=== PATIENT | male | born 1955 | race Caucasian/White ===

== ENCOUNTER 2024-08-24 05:53 | Day surgery (SDC) | payer OTHER, SELFPAY ==
[2024-08-11 10:54] VITALS: BMI 27.0
--- NOTE | 2024-08-24 06:53 | WPDANESEPPF ---
Anes - Initial Pre Proc Eval Procedure: Operation Date: 08/24/24 08:45 Proposed Procedures p Screening Colonoscopy - Luis Mc DO Date/Time: 08/24/24 06:53 Surgeon: Luis Mc DO Pre Op Diagnosis: Neoplasm Screening Patient Data Age: 68 Gender: M Height: 1.73 m Weight: 80.7 kg Allergies Allergy/AdvReac Type Severity Reaction Status Date / Time No Known Allergies Allergy Verified 08/24/24 07:32 Home Medications Medication Instructions Recorded Confirmed Type aspirin 81 mg tablet,delayed 81 mg PO DAILY 04/26/21 08/24/24 History release (Adult Low Dose Aspirin) omega 1-jrc-vbo-fish oil 1,200 mg 1 cap PO DIRECTED 04/26/21 08/24/24 History (144 mg-216 mg) capsule (Fish Oil) metformin 500 mg tablet,extended 500 mg PO BID #180 tabs 03/09/24 08/24/24 Rx release 24 hr simvastatin 20 mg tablet 20 mg PO DAILY #90 tabs 04/30/24 08/24/24 Rx fluocinolone acetonide oil 0.01 % 5 drp otic (ear) . daily otitis 06/08/24 08/24/24 Rx ear drops (DermOtic Oil) externa 7 days #20 mL losartan 25 mg tablet 25 mg PO DAILY #90 tabs 06/09/24 08/24/24 Rx Patient hx anesthesia problems: none Family hx anesthesia problems: none Results Review: All pre-operative results and documents have been reviewed as part of the pre-operative evaluation. [facility] Past Medical History Medical History (Updated 08/24/24 @ 08:39 by Luis Mc DO) Essential (primary) hypertension Mixed hyperlipidemia Type 2 diabetes mellitus without complications Family History Family History Sibling Depression Father Hypertension Family history of elevated blood lipids Cerebrovascular accident Mother Carcinoma of colon Social History Social History Social History: Caffeine- tea Smoking status: Never smoker Alcohol intake: current Alcohol use details: minimal Substance use: never Substance use type: does not use Lack of Transportation: No Lack of Food: Never True Current Housing: I Have Housing Concerned About Future Housing: No Difficulty Paying Gas/Electric Bills: No Difficulty Paying for Meds: No Currently Unemployed: No Education: Bachelor's Degree Difficulty w/ Childcare or Family Care: No Living arrangements: with family Spiritual care concerns: No Anes - Eval Final PreProcedure Day of Procedure 08/24/24 06:53 Patient weight: overweight Heart: regular rate and rhythm Lungs: clear to auscultation Airway: Mallampati scale class II Neurological: alert and oriented Last oral intake: >/= 8 hours ASA classification: III Emergent: no Anesthetic plan: proceed Anesthesia type and monitoring: general GIVS and standard monitoring Results Review: All pre-operative results and documents have been reviewed as part of the pre-operative evaluation. Informed Consent: The patient's anesthetic plan and its attendant risks and benefits were discussed with the patient/family/POA. Questions were solicited and answers provided to the satisfaction of the patient/family/POA.
[2024-08-24 07:37] VITALS: BP 127/75; PULSE 54; RESP 15; TEMP 36.3; O2SAT 100
[2024-08-24] MEDS: LACTATED RINGERS 1,000 ML 150 ML IV CONT (07:55)
[2024-08-24 08:02] LABS: Glucose Point of Care 103 mg/dl (65-105)
--- NOTE | 2024-08-24 08:38 | PM.IMHP ---
H&P: HPI History of Present Illness Date/Time: 08/24/24 08:38 Chief Complaint: Screening for colorectal cancer Narrative: 68 yo man presents for colonoscopy. Last done 10 years ago. Denies hematochezia/melena. No fam hx colon cancer. Review of Systems Review of Systems: All systems reviewed & are unremarkable except as noted in HPI and below Constitutional: Constitutional: Denies chills, Denies fever(s), Denies headache(s) and Denies weight loss Eyes: Eyes: Denies change in vision ENT: Denies dizziness, Denies headache(s), Denies neck mass and Denies throat swelling Cardiovascular: Cardiovascular: Denies chest pain, Denies lightheadedness and Denies dyspnea Respiratory: Respiratory: Denies cough, Denies dyspnea and Denies wheezing Gastrointestinal: Gastrointestinal: Denies abdominal pain, Denies change in bowel habits, Denies nausea and Denies vomiting Genitourinary: Genitourinary: Denies hematuria and Denies dysuria Musculoskeletal: Musculoskeletal: Reports as per HPI Integumentary/Breasts: Skin/Breast: Reports as per HPI Neurologic: Denies dizziness and Denies headache(s) Allergic/Immunologic: Allergic/Immunologic: Denies throat swelling and Denies wheezing PMFSH Past Medical History Medical History (Updated 08/24/24 @ 08:39 by Luis Mc DO) Essential (primary) hypertension Mixed hyperlipidemia Type 2 diabetes mellitus without complications Family History Family History Sibling Depression Father Hypertension Family history of elevated blood lipids Cerebrovascular accident Mother Carcinoma of colon Social History Social History Social History: Caffeine- tea Smoking status: Never smoker Alcohol intake: current Alcohol use details: minimal Substance use: never Substance use type: does not use Lack of Transportation: No Lack of Food: Never True Current Housing: I Have Housing Concerned About Future Housing: No Difficulty Paying Gas/Electric Bills: No Difficulty Paying for Meds: No Currently Unemployed: No Education: Bachelor's Degree Difficulty w/ Childcare or Family Care: No Living arrangements: with family Spiritual care concerns: No Meds Home Medications and Allergies Home Medications Medication Instructions Recorded Confirmed Type aspirin 81 mg tablet,delayed 81 mg PO DAILY 04/26/21 08/24/24 History release (Adult Low Dose Aspirin) omega 4-xzv-dss-fish oil 1,200 mg 1 cap PO DIRECTED 04/26/21 08/24/24 History (144 mg-216 mg) capsule (Fish Oil) metformin 500 mg tablet,extended 500 mg PO BID #180 tabs 03/09/24 08/24/24 Rx release 24 hr simvastatin 20 mg tablet 20 mg PO DAILY #90 tabs 04/30/24 08/24/24 Rx fluocinolone acetonide oil 0.01 % 5 drp otic (ear) . daily otitis 06/08/24 08/24/24 Rx ear drops (DermOtic Oil) externa 7 days #20 mL losartan 25 mg tablet 25 mg PO DAILY #90 tabs 06/09/24 08/24/24 Rx Allergies Allergy/AdvReac Type Severity Reaction Status Date / Time No Known Allergies Allergy Verified 08/24/24 07:32 Vital Signs Vital Signs - 24 hr 08/24/24 07:37 Temperature 97.3 F L Pulse Rate 54 L Respiratory Rate 15 Blood Pressure 127/75 Pulse Oximetry 100 Oxygen Delivery Room Air Exam Const: General: no acute distress and alert Orientation/consciousness: patient oriented x3 HENMT: Head: normocephalic and atraumatic Ears: hearing grossly normal bilaterally Face/Nose/Sinus: Normal nares present Mouth: Yes Normal oral and palatal mucosa present Eyes: Periorbital: periorbital findings normal Sclera: sclerae normal EOM: EOMs intact bilaterally Neck: Neck: normal visual inspection, no lymphadenopathy and trachea midline Chest: Chest palpation & inspection: normal inspection of the chest Resp: Effort & Inspection: normal respiratory effort Auscultation: clear to auscultation bilaterally Cardio: Jugular venous distension: no JVD Rate: regular rate Rhythm: regular rhythm Heart sounds: S1 normal heart sound present and S2 normal heart sound present Peripheral pulses: Peripheral pulses 2+ throughout GI: Inspection: normal to inspection GI Palp: Yes Soft to palpation, No Tenderness to palpation present (GI), No Guarding due to palpation present (GI) and No Rebound tenderness present Percussion: Yes normal to percussion Auscultation: normal bowel sounds : General: Yes no CVA tenderness Back/Spine/Pelvis: Back: no CVA tenderness Neuro: General: patient oriented x3, no focal motor deficits and CN's II-XI intact bilaterally Cognition (Neuro): normal cognition Speech: normal speech Motor exam (neuro): 5/5 motor strength present throughout Extrem: General: capillary refill normal and no clubbing, cyanosis or edema Assessment and Plan Assessment and plan (1) Screening for colorectal cancer: Code(s): Z12.11 - Encounter for screening for malignant neoplasm of colon; Z12.12 - Encounter for screening for malignant neoplasm of rectum Status: Acute Assessment and Plan: I have recommended colonoscopy. I have discussed the procedure, risks, benefits, and alternatives. Questions were answered. Patient is agreeable to proceed.
[2024-08-24 09:01] VITALS: BP 102/63; PULSE 52; RESP 16; O2SAT 99
[2024-08-24 09:10] VITALS: BP 113/68; PULSE 46; RESP 16; O2SAT 100
[2024-08-24 09:20] VITALS: BP 114/64; PULSE 48; RESP 16; O2SAT 100
--- NOTE | 2024-08-24 09:37 | WPDANESPN ---
Anes - Prog Note Post-Op Date/Time: 08/24/24 09:37 Cardiovascular status: normal Respiratory status: normal Airway patency: baseline Mental status: baseline Post-Op hydration status: normal Vital Signs: Last Vital Signs Temp 36.3 C L 08/24/24 07:37 Pulse 48 L 08/24/24 09:20 Resp 16 08/24/24 09:20 BP 114/64 08/24/24 09:20 Pulse Ox 100 08/24/24 09:20 O2 Del Method Room Air 08/24/24 09:20 Pain Score (VAS): 0 I/O: Intake & Output 08/23/24 08/24/24 08/24/24 23:59 07:59 15:59 Intake Total 500 Balance 500 08/24/24 07:49 POC Capillary Glucose 103 Post-procedural complaints: none Patient Feedback: Patient satisfied with anesthetic care. Other Findings: Patient vital signs back to baseline. Patient denies nausea and vomiting. Patient's pain under control. Patient OK for discharge.
== END 2024-08-24 09:35 | disposition home or self-care (01) ==
PROVIDERS: PCP Family Medicine; Visit Provider Surgery
PROC: 0DJD8ZZ Inspection of Lower Intestinal Tract, Via Natural or Artificial Opening Endoscopic (ICD-10-PCS; CPT 45378; principal; 2024-08-24 08:45)
DX: Z12.11 Encounter for screening for malignant neoplasm of colon (principal)
CPT/HCPCS: 45378